=== PATIENT | male | born 1960 | race Caucasian/White ===

== ENCOUNTER 2016-11-19 01:13 | Emergency (ER) | payer MEDICAID, OTHER ==
[~2016-11-19] VITALS: Ht 165.1 cm; Wt 82.0 kg
[2016-11-19] MEDS ORDERED: SODIUM CHLORIDE 0.9% 1,000 ML IV ONE (03:58)
[2016-11-19 04:28] LABS: PROTHROMBIN TIME 10.5 sec
[2016-11-19 04:29] LABS: BASOPHILS % 0.7 % (0.0-2.0); EOSINOPHILS % 0.6 % (0.0-5.0); HEMATOCRIT. 40.6 % (42.0-52.0); HEMOGLOBIN. 13.5 g/dL (14.0-18.0); LYMPHOCYTES % 21.7 % (20.0-50.0); MEAN CORPUSCULAR HEMOGLOBIN 28.8 pg (28.0-32.0); MEAN CORPUSCULAR VOLUME 86.6 fL (80.0-94.0); MEAN PLATELET VOLUME 7.4 fl (7.4-10.4); PLATELET 185 x1000/uL (130-400); RED BLOOD CELL COUNT 4.69 mill/uL (4.7-6.1); RED CELL DISTRIBUTION WIDTH 14.2 % (11.6-14.6)
[2016-11-19 04:38] LABS: CARBON DIOXIDE 27 mEq/L (21-32); CHLORIDE 102 mEq/L (98-107); TROPONIN I < 0.02 ng/mL (0.00-0.04)
[2016-11-19] MEDS ORDERED: LEVOFLOXACIN 750MG PREMIX 150 ML IV ONE (05:30)
[2016-11-19] MEDS ORDERED: METRONIDAZOLE 500 MG PREMIX 100 ML IV ONE (05:30)
[2016-11-19 07:29] VITALS: BP 108/68
== END 2016-11-19 08:08 | disposition home or self-care (01) ==
LOC: ER 03:50 → CANBEDREQ 08:14
DX: R10.30 Lower abdominal pain, unspecified (principal); R19.7 Diarrhea, unspecified
CPT/HCPCS: 36415; 71010; 74176; 80053; 83605; 83690; 83880; 84484; 85025; 85610; 87040; 93005; 96361; 96365; 96366; 96375; 99285; J1956; J3490; J7030; Z7610

== ENCOUNTER 2017-06-12 08:00 | Emergency (ER) | payer MEDICAID ==
[~2017-06-12] VITALS: Ht 165.1 cm; Wt 80.0 kg
[2017-06-12 08:09] VITALS: BP 161/75
[2017-06-12] MEDS ORDERED: ASPI-1159 PO (08:12)
[2017-06-12] MEDS ORDERED: NAPR-681 PO (08:12)
[2017-06-12 10:03] LABS: CLARITY URINE CLEAR (CLEAR); COLOR URINE YELLOW (YELLOW); KETONES URINE NEGATIVE (NEGATIVE); LEUKOCYTE ESTERASE URINE NEGATIVE (NEGATIVE); NITRITE URINE NEGATIVE (NEGATIVE); OCCULT BLOOD URINE NEGATIVE (NEGATIVE); PROTEIN URINE NEGATIVE (NEGATIVE); SPECIFIC GRAVITY URINE 1.023 (1.005-1.030); UROBILINOGEN URINE 0.2 E.U./dL (0.2-1.0)
== END 2017-06-12 10:46 | disposition home or self-care (01) ==
LOC: ER 08:26
DX: R30.0 Dysuria (principal); R35.0 Frequency of micturition; Z79.82 Long term (current) use of aspirin
CPT/HCPCS: 81003; 87086; 87491; 87591; 99284

== ENCOUNTER 2017-08-21 00:22 | Emergency (ER) | payer MEDICAID ==
[~2017-08-21] VITALS: Ht 162.6 cm; Wt 79.7 kg
[~2017-08-21 00:22] MED LIST: ASPI-1159 PO; NAPR-681 PO
[2017-08-21] MEDS ORDERED: SODIUM CHLORIDE 0.9% 1,000 ML IV ONE (06:31)
[2017-08-21 07:06] LABS: BASOPHILS % 0.5 % (0.0-2.0); EOSINOPHILS % 0.9 % (0.0-5.0); HEMATOCRIT. 37.5 % (42.0-52.0); HEMOGLOBIN. 12.5 g/dL (14.0-18.0); LYMPHOCYTES % 43.3 % (20.0-50.0); MEAN CORPUSCULAR HEMOGLOBIN 29.1 pg (28.0-32.0); MEAN PLATELET VOLUME 6.6 fl (7.4-10.4); MONOCYTES % 13.5 % (2.0-8.0); NEUTROPHILS % 41.8 % (40.0-76.0); PLATELET 154 x1000/uL (130-400); RED BLOOD CELL COUNT 4.31 mill/uL (4.7-6.1)
[2017-08-21 07:13] LABS: INR 1.1
[2017-08-21 07:18] LABS: CHLORIDE 108 mEq/L (98-107)
[2017-08-21 08:40] LABS: CLARITY URINE CLEAR (CLEAR); COLOR URINE YELLOW (YELLOW); KETONES URINE 1+ (NEGATIVE); LEUKOCYTE ESTERASE URINE NEGATIVE (NEGATIVE); NITRITE URINE NEGATIVE (NEGATIVE); OCCULT BLOOD URINE NEGATIVE (NEGATIVE); PROTEIN URINE NEGATIVE (NEGATIVE); SPECIFIC GRAVITY URINE 1.009 (1.005-1.030); UROBILINOGEN URINE 0.2 E.U./dL (0.2-1.0)
[2017-08-21 09:33] VITALS: BP 102/61
== END 2017-08-21 10:21 | disposition home or self-care (01) ==
LOC: ER 00:22
DX: A08.4 Viral intestinal infection, unspecified (principal); I10 Essential (primary) hypertension; R79.1 Abnormal coagulation profile; Z79.82 Long term (current) use of aspirin
CPT/HCPCS: 36415; 80053; 81003; 83690; 85025; 85610; 96360; 96361; 99285; J7030; Z7610

== ENCOUNTER 2018-10-01 00:38 | Inpatient (IN) | payer MEDICAID ==
[~2018-10-01] VITALS: Ht 162.6 cm; Wt 80.7 kg
[2018-10-01 01:44] LABS: BASOPHILS % 0.8 % (0.0-2.0); EOSINOPHILS % 0.9 % (0.0-5.0); HEMATOCRIT. 44.7 % (42.0-52.0); HEMOGLOBIN. 15.1 g/dL (14.0-18.0); LYMPHOCYTES % 45.8 % (20.0-50.0); MEAN CORPUSCULAR HEMOGLOBIN 29.8 pg (28.0-32.0); MEAN CORPUSCULAR VOLUME 87.9 fL (80.0-94.0); MEAN PLATELET VOLUME 7.3 fl (7.4-10.4); MONOCYTES % 6.9 % (2.0-8.0); NEUTROPHILS % 45.6 % (40.0-76.0); PLATELET 178 x1000/uL (130-400); RED BLOOD CELL COUNT 5.08 mill/uL (4.7-6.1); RED CELL DISTRIBUTION WIDTH 13.6 % (11.6-14.6)
[2018-10-01] MEDS ORDERED: NITROGLYCERIN 0.4MG TABLET SL SL PRN (01:45)
[2018-10-01] MEDS ORDERED: ASPIRIN 81MG TABLET PO NR (01:45)
[2018-10-01 01:50] LABS: CHLORIDE 106 mEq/L (98-107)
[2018-10-01] MEDS ORDERED: DILTIAZEM HCL 120MG CAPSULE CD 24HR PO ONE (02:15)
[2018-10-01] MEDS ORDERED: ENOXAPARIN 80MG/0.8ML SYR SUBCUT NR (02:30)
[2018-10-01 02:46] LABS: T4 FREE 0.98 ng/dL (0.76-1.46)
[2018-10-01] MEDS ORDERED: IPRATROPIUM/ALBUTEROL 0.5-3(2.5)MG/3ML NEB INH PRN (11:30)
[2018-10-01] MEDS ORDERED: ACETAMINOPHEN 325MG TABLET PO PRN (11:30)
[2018-10-01] MEDS ORDERED: ONDANSETRON HCL 4MG/2ML INJ IV PRN (11:30)
[2018-10-01] MEDS ORDERED: DOCUSATE SODIUM 100MG CAPSULE PO PRN (11:30)
[2018-10-01] MEDS ORDERED: HYDROCODONE/ACETAMINOPHEN 5/325MG TABLET PO PRN (11:30)
[2018-10-01] MEDS ORDERED: LORAZEPAM 0.5MG TABLET PO PRN (11:30)
[2018-10-01 12:14] LABS: PHOSPHORUS 4.3 mg/dL (2.5-4.9)
[2018-10-01 12:15] LABS: LDL CHOLESTEROL 159 mg/dL (5-100)
[2018-10-01 12:16] LABS: HDL CHOLESTEROL 47 mg/dL (40-59)
[2018-10-01 12:17] LABS: CREATINE KINASE 190 IU/L (39-308)
[2018-10-01 12:21] LABS: CREATINE KINASE MB FRACTION 1.4 ng/mL (0.5-3.6)
[2018-10-01 12:24] LABS: T4 FREE 0.99 ng/dL (0.76-1.46)
[2018-10-01 13:00] VITALS: BP 124/74
[2018-10-01 13:40] VITALS: BP 124/74
[2018-10-01 15:51] VITALS: BP 133/74
[2018-10-01] MEDS: METOPROLOL TARTRATE 25MG TABLET PO SCH (16:00)
[2018-10-01 20:00] VITALS: BP 113/65
[2018-10-01 20:27] LABS: *BARBITURATES SCREEN URINE NEGATIVE (NEGATIVE)
[2018-10-01 20:28] LABS: *AMPHETAMINES SCREEN URINE NEGATIVE (NEGATIVE); *BENZODIAZEPINES SCREEN URINE NEGATIVE (NEGATIVE); *COCAINE SCREEN URINE NEGATIVE (NEGATIVE); METHADONE URINE SCREEN NEGATIVE (NEGATIVE); OPIATES URINE SCREEN NEGATIVE (NEGATIVE); PHENCYCLIDINE URINE SCREEN NEGATIVE (NEGATIVE)
[2018-10-01 20:29] LABS: CANNABINOID URINE SCREEN NEGATIVE (NEGATIVE)
[2018-10-01] MEDS ORDERED: ATORVASTATIN CALCIUM 10MG TABLET PO SCH (21:00)
[2018-10-02] VITALS: BP 128/76
[2018-10-02 04:00] VITALS: BP 118/69
[2018-10-02 06:57] LABS: BASOPHILS % 0.5 % (0.0-2.0); EOSINOPHILS % 0.6 % (0.0-5.0); HEMATOCRIT. 43.2 % (42.0-52.0); HEMOGLOBIN. 14.4 g/dL (14.0-18.0); MEAN CORPUSCULAR HEMOGLOBIN 29.6 pg (28.0-32.0); MEAN CORPUSCULAR VOLUME 88.7 fL (80.0-94.0); MEAN PLATELET VOLUME 8.1 fl (7.4-10.4); MONOCYTES % 7.4 % (2.0-8.0); NEUTROPHILS % 55.5 % (40.0-76.0); PLATELET 185 x1000/uL (130-400); RED BLOOD CELL COUNT 4.87 mill/uL (4.7-6.1); RED CELL DISTRIBUTION WIDTH 13.8 % (11.6-14.6)
[2018-10-02 07:45] LABS: CHLORIDE 107 mEq/L (98-107)
[2018-10-02 08:00] VITALS: BP 128/79
[2018-10-02] MEDS: METOPROLOL TARTRATE 25MG TABLET PO SCH (08:18)
[2018-10-02 11:50] VITALS: BP 134/76
[2018-10-02 13:52] VITALS: BP 134/76
[2018-10-02] MEDS ORDERED: INFLUENZA VIRUS VACCINE(AFLURIA) 0.5ML SYR IM ONE (15:00)
[2018-10-02] MEDS ORDERED: PNEUMOCOCCAL 23-VAL P-SAC VAC 0.5 ML IM ONE (15:00)
== END 2018-10-02 15:31 | disposition home or self-care (01) | DRG 201 ==
LOC: ER 00:38 → 8WST 02:28 → ENRESERV 12:09
PROVIDERS: ADMIT Internal Medicine; ATTEND Internal Medicine
DX: I48.0 Paroxysmal atrial fibrillation (principal); I24.9 Acute ischemic heart disease, unspecified; I42.0 Dilated cardiomyopathy; I11.9 Hypertensive heart disease without heart failure; I25.10 Atherosclerotic heart disease of native coronary artery without angina pectoris; E78.5 Hyperlipidemia, unspecified; R94.6 Abnormal results of thyroid function studies; Z86.74 Personal history of sudden cardiac arrest; I25.2 Old myocardial infarction
CPT/HCPCS: 36415; 71045; 80048; 80061; 80305; 82550; 82553; 83036; 83735; 83880; 84100; 84439; 84443; 84481; 84484; 85379; 90686; 90732; 93005; 93306; 96372; 99285; C1893; J1650

== ENCOUNTER 2018-11-23 05:46 | Emergency (ER) | payer OTHER, MEDICAID ==
[~2018-11-23] VITALS: Ht 162.6 cm; Wt 82.0 kg
[~2018-11-23 05:46] MED LIST changes: -ASPI-1159 PO; +ASPI-1393 PO
[2018-11-23] MEDS ORDERED: SODIUM CHLORIDE 0.9% 1,000 ML IV ONE (06:38)
[2018-11-23 06:52] LABS: HEMOGLOBIN. 13.9 g/dL (14.0-18.0); MEAN CORPUSCULAR HEMOGLOBIN 29.7 pg (28.0-32.0); MEAN CORPUSCULAR VOLUME 89.6 fL (80.0-94.0); MEAN PLATELET VOLUME 7.4 fl (7.4-10.4); PLATELET 143 x1000/uL (130-400); RED BLOOD CELL COUNT 4.69 mill/uL (4.7-6.1); RED CELL DISTRIBUTION WIDTH 13.7 % (11.6-14.6)
[2018-11-23 06:56] LABS: CHLORIDE 109 mEq/L (98-107)
[2018-11-23 07:00] LABS: PROTHROMBIN TIME 10.4 sec (9.6-11.0)
[2018-11-23 08:07] LABS: PLATELET ESTIMATE NORMAL
[2018-11-23 09:50] VITALS: BP 117/76
== END 2018-11-23 09:53 | disposition home or self-care (01) ==
LOC: ER 06:42
DX: R42 Dizziness and giddiness (principal); E78.00 Pure hypercholesterolemia, unspecified; I10 Essential (primary) hypertension; E78.5 Hyperlipidemia, unspecified; R61 Generalized hyperhidrosis; Z79.899 Other long term (current) drug therapy
CPT/HCPCS: 36415; 71045; 80053; 85025; 85610; 93005; 96360; 96361; 99284; J7030; J7040; Z7610

== ENCOUNTER 2022-01-12 22:57 | Emergency (ER) | payer MEDICAID, OTHER ==
[~2022-01-12] VITALS: Ht 162.6 cm; Wt 79.0 kg
[~2022-01-12 22:57] MED LIST changes: -ASPI-1393 PO; +ASPI-1497 PO
[2022-01-12 23:17] VITALS: BP 152/88
[2022-01-13] MEDS ORDERED: ONDANSETRON 4MG ODT PO ONE (03:15)
[2022-01-13 04:40] LABS: BASOPHILS % 0.2 % (0.0-2.0); EOSINOPHILS % 0.1 % (0.0-5.0); HEMOGLOBIN. 14.8 g/dL (14.0-18.0); LYMPHOCYTES % 13.1 % (20.0-50.0); MEAN CORPUSCULAR HEMOGLOBIN 29.7 pg (28.0-32.0); MEAN CORPUSCULAR VOLUME 90.1 fL (80.0-94.0); MEAN PLATELET VOLUME 7.2 fl (7.4-10.4); MONOCYTES % 5.5 % (2.0-8.0); NEUTROPHILS % 81.1 % (40.0-76.0); PLATELET 181 x1000/uL (130-400); RED BLOOD CELL COUNT 4.99 mill/uL (4.7-6.1); RED CELL DISTRIBUTION WIDTH 14.7 % (11.6-14.6)
[2022-01-13 04:59] LABS: CHLORIDE 100 mEq/L (98-107)
[2022-01-13] MEDS ORDERED: ONDA4TAB50 MT (05:14)
== END 2022-01-13 06:49 | disposition home or self-care (01) ==
LOC: ER 22:57
DX: A05.9 Bacterial foodborne intoxication, unspecified (principal); R53.1 Weakness; I10 Essential (primary) hypertension
CPT/HCPCS: 36415; 80053; 83605; 83690; 85025; 99283; Q0162